=== PATIENT | female | born 1950 | race Caucasian/White ===

== ENCOUNTER → 2017-01-03 | Outpatient (CLI) | payer OTHER ==
[~2017-01-03] MED LIST: ADVIN25/60 INH; APPLTAB PO; B-COTAB18 PO; CALC1TAB25 PO; EVEN1000 PO; FEXO1TAB49 PO; GING1CAP PO; IBUP-103 PO; L-LYSINE PO; MONT1TAB3 PO; OMEG10007 PO; VITAMIN D3 PO; VNTHFA/IN INH
[2017-01-03 09:37] LABS: BASO % 0.9 %; BASO ABS # 0.07 K/uL (0-0.2); COMPLETE YES; HEMATOCRIT 39.3 % (37-47); IG% 0.1 %; LYMPH % 34.8 %; LYMPH ABS # 2.77 K/uL (1.2-3.4); MEAN CORPUSCULAR HEMOGLOBIN 26.5 pg (25-34); MEAN CORPUSCULAR HGB CONC 32.3 g/dl (32-36); MEAN PLATELET VOLUME 10.3 fL (7.4-10.4); MONO % 7.9 %; NEUT % 54.3 %; PLATELET COUNT 337 K/uL (130-400); RED BLOOD COUNT 4.79 M/uL (4.2-5.4); WHITE BLOOD COUNT 7.95 K/uL (4.8-10.8)
[2017-01-03 09:43] LABS: URINE APPEARANCE CLEAR (CLEAR); URINE BILIRUBIN NEG (NEG); URINE COLOR YELLOW; URINE NITRITE NEG (NEG); URINE PH 6.5 (4.5-7.5); URINE SPECIFIC GRAVITY 1.018 (1.000-1.030); UROBILINOGEN NEG (NEG)
[2017-01-03 09:47] LABS: BLOOD UREA NITROGEN 17 mg/dl (7-18); CREATININE 0.88 mg/dl (0.60-1.20); GLUCOSE 103 mg/dl (70-99)
[2017-01-03 09:48] LABS: ALT/SGPT 30 U/L (12-78); AST/SGOT 15 U/L (15-37); BUN/CREATININE RATIO 19.1 (10-20); CALCIUM 8.5 mg/dl (8.5-10.1); CARBON DIOXIDE 25 mmol/L (21-32); CHLORIDE 105 mmol/L (98-107); MANUAL MICROSCOPIC REQUIRED? NO; POTASSIUM 3.8 mmol/L (3.5-5.1); REVIEW REQ? NO; SODIUM 138 mmol/L (136-145)
[2017-01-03 09:58] LABS: ALKALINE PHOSPHATASE 46 U/L (45-117); CHOLESTEROL 189 mg/dl (0-200); CHOLESTEROL/HDL RATIO 2.7; HDL CHOLESTEROL 71 mg/dl; LDL CHOLESTEROL CALCULATED 97 mg/dl; TRIGLYCERIDES 104 mg/dl (0-150); VERY LOW DENSITY LIPOPROT CALC 21 mg/dl
== END | disposition home or self-care (01) ==
LOC: C.LAB1850 07:18 → MERGE 07:18
PROVIDERS: ATTEND Internal Medicine Pulmonary Disease
DX: E78.5 Hyperlipidemia, unspecified (principal); J30.9 Allergic rhinitis, unspecified; J45.909 Unspecified asthma, uncomplicated

== ENCOUNTER → 2017-06-13 | Day surgery (SDC) | payer OTHER ==
[2016-12-25 07:43] VITALS: BMI 29.0
[~2017-06-13] VITALS: Ht 162.6 cm; Wt 77.3 kg
[~2017-06-13] MED LIST changes: +CINNAMON PO; +FENTANYL CITRATE INJ 50 MCG/1 ML 2 ML VIAL ONE; +LIDOCAINE HCL 2% 2 ML VIAL (20MG/ML) ONE; +PROPOFOL IV EMULSION 10 MG/ML 20 ML VIAL IV ONE; +SODIUM CHLORIDE 0.9% 500ML 500 ML IV ONE
[2017-06-13 10:49] VITALS: Ht 162.6 cm; Wt 77.3 kg
--- NOTE | 2017-06-13 11:36 | Endo History and Physical ---
History & Physical Date of Service: Jun 13, 2017. Chief Complaint: SCREENING Referring Physician: DR. GARY History of Present Illness 66 yo CF who presents for screening colonoscopy. Past Surgical History Hx Cardiac Surgery: No Hx Internal Defibrillator: No Hx Pacemaker: No Hx Abdominal Surgery: No Hx of Implantable Prosthesis: No Hx Post-Op Nausea and Vomiting: No Hx Cancer Surgery: No (SKIN CA/REMOVAL OUTPT) Hx Thoracic Surgery: No Hx Orthopedic: Yes (SHOULDER BOTH GANG CYST) Hx Urinary Tract Surgery: No Family History Polyp Social History Smoking Status: Never Smoker Hx Substance Use: No Hx Alcohol Use: Yes (VERY RARELY) Allergies Coded Allergies: Codeine (Verified Allergy, Mild, VOMITING, 06/13/17) Sulfa Drugs (Verified Allergy, Mild, SWELLING, 06/13/17) Erythromycin (Verified Allergy, Unknown, VOMITTING, 06/13/17) Penicillins (Verified Allergy, Unknown, RASH, 06/13/17) Current Medications Reported Home Medications Medications Dose Route/Sig Max Daily Dose Days Date Category [Cinnamon] 1 Cap PO BID 05/30/17 Reported Advil (Ibuprofen) 200 Mg Tab 200-600 Mg PO Q4H PRN 12/25/16 Reported Apple Cider Vinegar 500 Mg Tab 1 Tab PO TID 12/25/16 Reported Kasandra (Kasandra (Zingiber Officinalis)) 500 Mg Cap 1 Cap PO DAILY 12/25/16 Reported Vitamin B Complex (B-Complex Vitamins) 1 Tab Tab 1 Tab PO QAM 12/25/16 Reported Durham-3 (Fish Oil) 1 Ea Cap 1 Cap PO QAM 12/25/16 Reported Evening Masterson Oil 1 Cap Cap 1 Cap PO QAM 12/25/16 Reported [Vitamin D3] 1 Tab PO QAM 12/25/16 Reported Calcium Magnesium 750 (Calcium W/ Magnesium) 1 Tab Tab 1 Tab PO DAILY 12/25/16 Reported [L-Lysine] 1,000 Mg PO DAILY 12/25/16 Reported Ventolin Hfa (Albuterol) 200 Puffs/33408 Mcg Aers 2-4 Puffs INH Q6H PRN 12/25/16 Reported Marium Allergy (Fexofenadine Hcl) 180 Mg Tab 1 Tab PO QPM 14 12/25/16 Reported Singulair (Montelukast Sodium) 10 Mg Tab 10 Mg PO QPM 12/25/16 Reported Advair Diskus 250/50 60 Dose (Fluticasone Prop/Salmeterol) 1 Ea Aerp 1 Puff INH BID 12/25/16 Reported Vital Signs Weight (Kilograms): 77.27 Height (Feet): 5 Height (Inches): 4 Date Time Temp Pulse Resp B/P (MAP) Pulse Ox O2 Delivery O2 Flow Rate FiO2 06/13/17 11:11 36.6 74 20 144/89 (107) 99 Room Air Physical Exam General Appearance: WD/WN, no apparent distress Respiratory/Chest: Auscultation: breath sounds normal Cardiovascular: Heart Auscultation: RRR Abdomen: Bowel Sounds: normal Inspection & Palpation: soft, non-distended, no tenderness, guarding & rebound Assessment and Plan Assessment: 66 yo CF who presents for screening colonoscopy. Plan: Proceed with colonoscopy.
--- NOTE | 2017-06-13 13:14 | GI REPORT ---
Procedure Date: 06/13/2017 12:18 PM Procedure: Colonoscopy Indications: Screening for colorectal malignant neoplasm Medicines: Monitored Anesthesia Care Complications: No immediate complications. Estimated Blood Loss: Estimated blood loss: none. Procedure: Pre-Anesthesia Assessment: - Prior to the procedure, a History and Physical was performed, and patient medications and allergies were reviewed. The patient's tolerance of previous anesthesia was also reviewed. The risks and benefits of the procedure and the sedation options and risks were discussed with the patient. All questions were answered, and informed consent was obtained. Prior Anticoagulants: The patient has taken no previous anticoagulant or antiplatelet agents. ASA Grade Assessment: II - A patient with mild systemic disease. After reviewing the risks and benefits, the patient was deemed in satisfactory condition to undergo the procedure. After I obtained informed consent, the scope was passed under direct vision. Throughout the procedure, the patient's blood pressure, pulse, and oxygen saturations were monitored continuously. The scope was introduced through the anus and advanced to the terminal ileum. The colonoscopy was performed with moderate difficulty due to significant looping. Successful completion of the procedure was aided by using manual pressure and withdrawing the scope and replacing with the pediatric colonoscope. The patient tolerated the procedure well. The quality of the bowel preparation was good. The terminal ileum, ileocecal valve, appendiceal orifice, and rectum were photographed. Findings: The perianal and digital rectal examinations were normal. Multiple small-mouthed diverticula were found in the sigmoid colon. Non-bleeding internal hemorrhoids were found during retroflexion. The hemorrhoids were small. Impression: - Diverticulosis in the sigmoid colon. - Non-bleeding internal hemorrhoids. - No specimens collected. Recommendation: - Resume previous diet. - Continue present medications. - Repeat colonoscopy in 10 years for surveillance. - Return to primary care physician as previously scheduled. Marko Lizama DO 06/13/2017 1:14:04 PM This report has been signed electronically. Note Initiated On: 06/13/2017 12:18 PM I attest to the content of the Intraoperative Record and orders documented therein, exceptions below
--- NOTE | 2017-06-13 13:16 | Discharge Instructions ---
Endoscopy Patient Instructions Date / Procedure(s) Performed Jun 13, 2017. Colonoscopy Allergy Information Coded Allergies: Penicillins (Verified Allergy, Intermediate, RASH, 06/13/17) Sulfa Drugs (Verified Allergy, Mild, SWELLING, 06/13/17) Codeine (Verified Adverse Reaction, Mild, VOMITING, 06/13/17) Erythromycin (Verified Adverse Reaction, Mild, VOMITTING, 06/13/17) Discharge Date / Findings Jun 13, 2017. Diverticulosis Internal hemorrhoids Provider Instructions Activity Restrictions - No exercising or heavy lifting for 24 hours. - Do not drink alcohol the day of the procedure. - Do not drive a car or operate machinery until the day after the procedure. - Do not make any important decisions or sign important papers in 24 hours after the procedure. Following Day: - Return to full activity which may include returning to work/school. Diet Start your diet with liquids and light foods (jello, soup, juice, toast). Then eat your usual diet if not nauseated. Treatment For Common After Affects For mild abdominal pain, bloating, or excessive gas: - Rest - Eat lightly - Lie on right side Follow-Up Information Follow-up with DR. GARY as scheduled Anesthesia Information What You Should Know You have had a procedure that required some medicine to reduce anxiety and discomfort. This treatment is called moderate sedation. After receiving the treatment, you may be sleepy, but you will be able to breathe on your own. The effects of the treatment may last for several hours. Follow these instructions along with Activity/Diet recommendations noted above: * Do NOT do anything where dizziness or clumsiness would be dangerous. * Rest quietly at home today, then you can be up and about tomorrow. * Have a responsible person stay with you the rest of today. * You may have had an I.V. today. If so, you may take the dressing off later today. Recommendations Call your doctor if: * Trouble breathing * Continuous vomiting for more than 24 hours * Temperature above 101 degrees * Severe abdominal pain or bloating * Pain not relieved by pain medicine ordered * There is increased drainage or redness from any incision * A large amount of rectal bleeding greater than 2-3 tablespoons. (If you had a polyp/s removed or have hemorrhoids, a small amount of blood - from the rectum is to be expected.) * You have any unanswered questions or concerns. IN THE EVENT OF A SERIOUS EMERGENCY, GO TO THE NEAREST EMERGENCY ROOM Your discharge instructions were prepared by provider Marko Lizama. Patient Instructions Signature Page Mimi Parrish Patient (or Guardian) Signature/Date: I have read and understand the instructions given to me by my caregivers. Caregiver/RN/Doctor Signature/Date: The above-named patient and/or guardian has received patient instructions on this date. + Original Patient Signature Page (only) stays with chart. Please make copy for patient.
[2017-06-13 13:44] VITALS: BP 143/74; PULSE 64; O2SAT 100
--- NOTE | 2017-06-13 14:35 | Anesthesiology Progress Note ---
Anesthesia Post Op Note Date & Time Jun 13, 2017 at 14:35 Vital Signs Pain Intensity: 0 Vital Signs Past 12 Hours Date Time Temp Pulse Resp B/P (MAP) Pulse Ox O2 Delivery O2 Flow Rate FiO2 06/13/17 13:44 64 16 143/74 (97) 100 Room Air 06/13/17 13:29 64 16 145/88 (107) 100 Room Air 06/13/17 13:14 82 16 125/77 (93) 99 Room Air 06/13/17 11:11 36.6 74 20 144/89 (107) 99 Room Air Notes Mental Status: alert / awake / arousable, participated in evaluation Pt Amnestic to Procedure: Yes Nausea / Vomiting: adequately controlled Pain: adequately controlled Airway Patency, RR, SpO2: stable & adequate BP & HR: stable & adequate Hydration State: stable & adequate Anesthetic Complications: no major complications apparent
== END | disposition home or self-care (01) ==
LOC: MERGE 01-20 13:15 → C.GI 10:18
PROVIDERS: ATTEND Internal Medicine
DX: Z12.11 Encounter for screening for malignant neoplasm of colon (principal); K57.30 Diverticulosis of large intestine without perforation or abscess without bleeding; K64.8 Other hemorrhoids; J45.909 Unspecified asthma, uncomplicated; Z88.2 Allergy status to sulfonamides; Z88.0 Allergy status to penicillin; Z88.5 Allergy status to narcotic agent; Z88.1 Allergy status to other antibiotic agents; Z85.828 Personal history of other malignant neoplasm of skin